=== PATIENT | female | born 1940 | race Caucasian/White ===

== ENCOUNTER 2021-11-10 10:53 | Outpatient (CLI) | payer MEDICARE, BC ==
[~2021-11-10 10:53] MED LIST: Iopamidol-370 76% 500 ML 1 ML ONE
== END 2021-11-10 10:54 | disposition home or self-care (01) ==
LOC: BICCT 10:53
PROVIDERS: ATTEND Otolaryngology Plastic Surgery within the Head & Neck
DX: E21.3 Hyperparathyroidism, unspecified (principal); E04.1 Nontoxic single thyroid nodule
CPT/HCPCS: 70492; 82565; Q9967

== ENCOUNTER 2021-11-12 10:47 | Outpatient (CLI) | payer MEDICARE, BC ==
[2021-11-12 14:11] LABS: Anion Gap 13 mmol/L (10-20); BUN (Urea Nitrogen) 14 mg/dL (9.8-20.1); Calc. Creatinine Clearance 0 mL/min (70-130); Calcium 10.5 mg/dL (7.8-10.44); Carbon Dioxide 28 mmol/L (23-31); Chloride 104 mmol/L (98-107); Glucose 170 mg/dL (83-110); Potassium 4.6 mmol/L (3.5-5.1); Sodium 140 mmol/L (136-145)
[2021-11-12 14:21] LABS: INR-International Normal Ratio 0.9; Prothrombin Time 10.4 sec (9.5-12.1)
[2021-11-12 14:47] LABS: #Eosinphils 0.2 10x3/uL (0.0-0.5); #Monocytes 0.6 10x3/uL (0.0-1.1); #Neutrophils 2.5 10x3/uL (1.5-8.4); %Basophils 0.6 % (0.0-2.0); %Eosinophils 2.8 % (0.0-6.0); %Lymphocytes 39.1 % (18.0-47.0); %Monocytes 10.3 % (0.0-10.0); %Neutrophils 46.8 % (40.0-75.0); Hemoglobin 13.6 g/dL (12.0-15.5); Mean Corpuscular HGB CONC 33.7 g/dL (32.0-36.0); Mean Corpuscular Hemoglobin 31.6 pg (27.0-33.0); Mean Corpuscular Volume 93.7 fl (81.6-98.3); Mean Platelet Volume 11.1 fl (7.4-10.4); Platelet Count 189 10x3/uL (150-450); RBC Distribution Width 12.1 % (11.5-14.5); Red Blood Cell (RBC) Count 4.31 10x6/uL (3.90-5.03); White Blood Cell (WBC) Count 5.3 10x3/uL (3.5-10.5)
[2021-11-12 22:43] LABS: SARS-CoV-2 PCR by NAA Not Detected (NotDetected)
== END 2021-11-12 10:48 | disposition home or self-care (01) ==
LOC: LABBT 10:47
PROVIDERS: ATTEND Orthopaedic Surgery
DX: Z01.812 Encounter for preprocedural laboratory examination (principal); Z20.822 Contact with and (suspected) exposure to COVID-19
CPT/HCPCS: 80048; 85025; 85610; 87081; U0003; U0005

== ENCOUNTER 2021-11-17 07:25 | Day surgery (SDC) | payer MEDICARE, BC ==
[2021-11-11 16:17] VITALS: BMI 28.3
[2021-11-17] MEDS ORDERED: Tranexamic Acid 1,000 MG/10 ML VIAL ONE (08:16)
[2021-11-17] MEDS ORDERED: Vancomycin 1 GM/200 ML BAG ONE (08:16)
[2021-11-17] MEDS ORDERED: Sodium Chloride 0.9% 100 ML ONE (08:16)
[2021-11-17] MEDS ORDERED: ceFAZolin 2 GM/DEX 5% 100 ML BAG ONE (08:16)
[2021-11-17] MEDS ORDERED: Midazolam HCl 2 mg/2 ml Vial ONE (08:19)
[2021-11-17] MEDS ORDERED: Lidocaine 1% (PF) 30 ML VIAL ONE (08:19)
[2021-11-17] MEDS ORDERED: Fentanyl 100 MCG/2 ML VIAL ONE ×4 (08:19→11:33)
[2021-11-17] MEDS ORDERED: Bupivacaine HCl 0.5%/Epinephrine 1:200,000/PF 30 ml Vial ONE (09:34)
[2021-11-17] MEDS ORDERED: Ondansetron PF 4 MG/2 ML Vial ONE (09:34)
[2021-11-17] MEDS ORDERED: Labetalol HCl 100 MG/20 ML VIAL ONE (09:34)
[2021-11-17] MEDS ORDERED: PROPOFOL 200 MG/20 ML VIAL ONE (09:34)
[2021-11-17] MEDS ORDERED: Lidocaine 1% PF 5 ML VIAL ONE (09:34)
[2021-11-17] MEDS ORDERED: Dexamethasone 20 MG/5 ML VIAL ONE (09:34)
[2021-11-17] MEDS ORDERED: Promethazine HCl 25 MG/ML VIAL IVPB PRN (10:03)
[2021-11-17] MEDS ORDERED: Promethazine HCl 25 MG/ML VIAL IM PRN ×2 (10:03→11:15)
[2021-11-17] MEDS ORDERED: PACU-Morphine 4MG/ML VIAL SLOW IVP PRN (10:03)
[2021-11-17] MEDS ORDERED: Bupivacaine PF 0.5% 30 ML VIAL ONE (10:05)
[2021-11-17] MEDS ORDERED: Fentanyl 100 MCG/2 ML VIAL IV PRN (11:04)
[2021-11-17] MEDS ORDERED: Ropivacaine 0.2% 550 ML 550 ML NERVE BLCK SCH (11:15)
[2021-11-17] MEDS ORDERED: traMADol HCl 50 MG TAB PO PRN ×2 (11:15)
[2021-11-17] MEDS ORDERED: HYDROcodone/Acetaminophen 10/325 mg Tablet PO PRN ×2 (11:15)
[2021-11-17] MEDS ORDERED: Zolpidem Tartrate 5 MG TAB PO PRN (11:15)
[2021-11-17] MEDS ORDERED: Ondansetron PF 4 MG/2 ML Vial IVP PRN (11:15)
[2021-11-17] MEDS ORDERED: Ketorolac Tromethamine 30 MG/ML VIAL IVP SCH (12:00)
== END 2021-11-17 15:03 ==
LOC: SDC 07:25
PROVIDERS: ATTEND Orthopaedic Surgery
PROC: 0SRC0J9 Replacement of Right Knee Joint with Synthetic Substitute, Cemented, Open Approach (ICD-10-PCS; principal; 2021-11-17)
PROC: 8E0YXBZ Computer Assisted Procedure of Lower Extremity (ICD-10-PCS; 2021-11-17)
PROC: 3E0T3BZ Introduction of Anesthetic Agent into Peripheral Nerves and Plexi, Percutaneous Approach (ICD-10-PCS; 2021-11-17)
DX: M17.11 Unilateral primary osteoarthritis, right knee (principal); E78.5 Hyperlipidemia, unspecified; K76.0 Fatty (change of) liver, not elsewhere classified; M81.0 Age-related osteoporosis without current pathological fracture; E11.9 Type 2 diabetes mellitus without complications; Z86.16 Personal history of COVID-19; Z87.891 Personal history of nicotine dependence; Z79.84 Long term (current) use of oral hypoglycemic drugs; Z79.899 Other long term (current) drug therapy
CPT/HCPCS: 20985; 27447; 64448; 73560; A4306; C1713; C1776; J1100; J2001; J2250; J2405; J2704; J2795; J3010; J3370; J3490; S0020

== ENCOUNTER 2022-01-20 14:14 | Outpatient (CLI) | payer MEDICARE, BC ==
[2022-01-20 22:06] LABS: SARS-CoV-2 PCR by NAA Not Detected (NotDetected)
== END 2022-01-20 14:15 | disposition home or self-care (01) ==
LOC: LABBT 14:14
PROVIDERS: ATTEND Orthopaedic Surgery
DX: M17.11 Unilateral primary osteoarthritis, right knee (principal); Z20.822 Contact with and (suspected) exposure to COVID-19
CPT/HCPCS: U0003; U0005

== ENCOUNTER 2022-01-25 08:40 | Day surgery (SDC) | payer MEDICARE, BC ==
[2022-01-18 10:58] VITALS: BMI 26.4
[2022-01-25] MEDS ORDERED: Famotidine/PF 20 mg/2ml Vial ONE (09:58)
[2022-01-25] MEDS ORDERED: Fentanyl 250 MCG/5 ML VIAL ONE ×2 (11:03→11:44)
[2022-01-25] MEDS ORDERED: Labetalol HCl 100 MG/20 ML VIAL ONE (11:18)
[2022-01-25] MEDS ORDERED: Succinylcholine 200 MG/10 ml SYRINGE FS ONE (11:18)
[2022-01-25] MEDS ORDERED: Lidocaine 1% PF 5 ML VIAL ONE (11:18)
[2022-01-25] MEDS ORDERED: PROPOFOL 200 MG/20 ML VIAL ONE (11:18)
[2022-01-25] MEDS ORDERED: Morphine 4 MG/ML VIAL ONE (12:48)
[2022-01-25] MEDS ORDERED: HYDROcodone/Acetaminophen 5/325 mg Tablet ONE (13:22)
== END 2022-01-25 14:50 | disposition home or self-care (01) ==
LOC: SDC 08:40
PROVIDERS: ATTEND Orthopaedic Surgery
PROC: 0SNCXZZ Release Right Knee Joint, External Approach (ICD-10-PCS; principal; 2022-01-25)
DX: M24.661 Ankylosis, right knee (principal); E11.9 Type 2 diabetes mellitus without complications; M81.0 Age-related osteoporosis without current pathological fracture; E78.5 Hyperlipidemia, unspecified; Z87.891 Personal history of nicotine dependence; Z79.84 Long term (current) use of oral hypoglycemic drugs; Z79.899 Other long term (current) drug therapy; Z96.651 Presence of right artificial knee joint
CPT/HCPCS: J2270; J3010; S0028

== ENCOUNTER 2022-04-07 08:33 | Outpatient (CLI) | payer MEDICARE, BC | END 2022-04-07 08:34 | disposition home or self-care (01) | LOC: BICMAMMO 08:33 | PROVIDERS: ATTEND Family Medicine | DX: Z12.31 Encounter for screening mammogram for malignant neoplasm of breast (principal); Z13.820 Encounter for screening for osteoporosis; M81.0 Age-related osteoporosis without current pathological fracture; M85.88 Other specified disorders of bone density and structure, other site | CPT/HCPCS: 77063; 77067; 77080 ==

== ENCOUNTER 2022-04-27 09:11 | Outpatient (CLI) | payer MEDICARE, BC | END 2022-04-27 09:12 | disposition home or self-care (01) | LOC: BICULT 09:11 | PROVIDERS: ATTEND Family Medicine | DX: Z13.6 Encounter for screening for cardiovascular disorders (principal) | CPT/HCPCS: 76775 ==

== ENCOUNTER 2022-10-11 13:41 | Outpatient (CLI) | payer MEDICARE, BC ==
[2022-10-11 15:05] LABS: Hemoglobin 13.1 g/dL (12.0-15.5)
[2022-10-11 15:24] LABS: Anion Gap 11 mmol/L (10-20); BUN (Urea Nitrogen) 15 mg/dL (9.8-20.1); Calc. Creatinine Clearance 0 mL/min (70-130); Calcium 10.7 mg/dL (7.8-10.44); Carbon Dioxide 27 mmol/L (23-31); Chloride 101 mmol/L (98-107); Estimated GFR 70; Glucose 173 mg/dL (83-110); Potassium 4.2 mmol/L (3.5-5.1); Sodium 135 mmol/L (136-145)
== END 2022-10-11 13:42 | disposition home or self-care (01) ==
LOC: LABBT 13:41
PROVIDERS: ATTEND Otolaryngology Plastic Surgery within the Head & Neck
DX: Z01.812 Encounter for preprocedural laboratory examination (principal); E21.3 Hyperparathyroidism, unspecified; E11.9 Type 2 diabetes mellitus without complications
CPT/HCPCS: 80048; 85014; 85018; 93005; 93010

== ENCOUNTER 2022-10-20 10:05 | Day surgery (SDC) | payer MEDICARE, BC ==
[2022-10-19 13:16] VITALS: BMI 27.3
== END 2022-10-20 11:52 | disposition home or self-care (01) ==
LOC: SDC 10:05
PROVIDERS: ATTEND Otolaryngology Plastic Surgery within the Head & Neck
DX: E21.3 Hyperparathyroidism, unspecified (principal); E11.9 Type 2 diabetes mellitus without complications; M81.0 Age-related osteoporosis without current pathological fracture; E78.5 Hyperlipidemia, unspecified; Z53.8 Procedure and treatment not carried out for other reasons; Z87.891 Personal history of nicotine dependence; Z79.84 Long term (current) use of oral hypoglycemic drugs; Z79.899 Other long term (current) drug therapy

== ENCOUNTER 2023-07-12 07:33 | Outpatient (CLI) | payer MEDICARE, BC | END 2023-07-12 07:34 | disposition home or self-care (01) | LOC: BICCT 07:33 | PROVIDERS: ATTEND Physician Assistant | DX: E21.3 Hyperparathyroidism, unspecified (principal); E07.9 Disorder of thyroid, unspecified; I65.23 Occlusion and stenosis of bilateral carotid arteries | CPT/HCPCS: 70492; 82565 ==

== ENCOUNTER 2023-10-07 23:47 | Emergency (ER) | payer MEDICARE, BC ==
[2023-10-08 00:31] LABS: #Eosinphils 0.2 thou/uL (0.0-0.7); #Monocytes 0.8 thou/uL (0.11-0.59); #Neutrophils 3.1 thou/uL (1.40-6.50); %Basophils 0.3 % (0.0-1.0); %Eosinophils 2.7 % (0.0-10.0); %Lymphocytes 46.4 % (21.0-51.0); %Monocytes 10.7 % (0.0-10.0); %Neutrophils 39.8 % (42.0-75.0); Hematocrit 37.6 % (36.0-47.0); Hemoglobin 13.1 g/dL (12.0-16.0); Mean Corpuscular HGB CONC 34.8 g/dL (32.0-36.0); Mean Corpuscular Hemoglobin 32.4 pg (27.0-31.0); Mean Corpuscular Volume 93.1 fl (78.0-98.0); Mean Platelet Volume 11.2 fL (7.4-10.4); Platelet Count 165 10x3/uL (130-400); RBC Distribution Width 11.7 % (11.5-14.5); Red Blood Cell (RBC) Count 4.04 mill/uL (4.20-5.40); White Blood Cell (WBC) Count 7.7 10x3/uL (4.8-10.8)
[2023-10-08 00:55] LABS: ALT (SGPT) 36 U/L (8-55); AST (SGOT) 30 U/L (5-34); Albumin 4.3 g/dL (3.4-4.8); Alkaline Phosphatase 106 U/L (40-110); Anion Gap 16 mmol/L (10-20); BUN (Urea Nitrogen) 16 mg/dL (9.8-20.1); Bilirubin, Total 0.4 mg/dL (0.2-1.2); Calc. Creatinine Clearance 0 mL/min (70-130); Calcium 10.2 mg/dL (7.8-10.44); Carbon Dioxide 22 mmol/L (23-31); Chloride 106 mmol/L (98-107); Estimated GFR 55; Globulin 3.1 g/dL (2.4-3.5); Glucose 162 mg/dL (83-110); Potassium 4.3 mmol/L (3.5-5.1); Protein, Total 7.4 g/dL (5.8-8.1); Sodium 140 mmol/L (136-145)
== END 2023-10-08 05:20 | disposition home or self-care (01) ==
LOC: ERS 23:47
DX: R20.0 Anesthesia of skin (principal); R20.2 Paresthesia of skin; E11.65 Type 2 diabetes mellitus with hyperglycemia; E78.00 Pure hypercholesterolemia, unspecified; Z87.891 Personal history of nicotine dependence; Z79.899 Other long term (current) drug therapy; Z79.84 Long term (current) use of oral hypoglycemic drugs
CPT/HCPCS: 36416; 70496; 70498; 80053; 85025; 93005

== ENCOUNTER → 2023-10-27 | Day surgery (SDC) | payer MEDICARE, BC | LOC: NM 08:38 | PROVIDERS: ATTEND Physician Assistant | DX: E21.3 Hyperparathyroidism, unspecified (principal) | CPT/HCPCS: 78072; A9500 ==

== ENCOUNTER 2024-04-17 10:39 | Day surgery (SDC) | payer MEDICARE, BC ==
[~2024-04-17 10:39] MED LIST changes: -Iopamidol-370 76% 500 ML 1 ML ONE; +Zoledronic Acid/Mannitol&Water 5 MG in Premix 1 BAG IVPB SCH
[2024-04-17] MEDS: Zoledronic Acid/Mannitol&Water 5 MG in Premix 1 BAG IVPB SCH (11:21)
[2024-04-17 12:04] VITALS: BP 177/75; TEMP 97.8
== END 2024-04-17 12:32 | disposition home or self-care (01) ==
LOC: ONC/OP 10:39
PROVIDERS: ATTEND Internal Medicine Endocrinology, Diabetes & Metabolism
DX: M81.8 Other osteoporosis without current pathological fracture (principal); E11.9 Type 2 diabetes mellitus without complications; E21.3 Hyperparathyroidism, unspecified; K21.9 Gastro-esophageal reflux disease without esophagitis; Z90.89 Acquired absence of other organs; Z96.659 Presence of unspecified artificial knee joint; Z79.84 Long term (current) use of oral hypoglycemic drugs; Z79.899 Other long term (current) drug therapy; Z87.891 Personal history of nicotine dependence
CPT/HCPCS: 96365; J3489